=== PATIENT | male | born 1980 | race Caucasian/White ===

== ENCOUNTER 2017-11-16 08:56 | Emergency (ER) | payer MEDICAID ==
[~2017-11-16] VITALS: Ht 185.4 cm; Wt 112.0 kg
[2017-11-16] MEDS ORDERED: FAMOTIDINE 20 MG TABLET ONE (09:50)
[2017-11-16] MEDS ORDERED: MAALOX/HYOSCYAMINE/LIDOCAINE 45 ML BTL ONE (09:51)
[2017-11-16 09:59] LABS: HEMATOCRIT 52.1 % (39.2-51.8); HEMOGLOBIN 18.3 g/dL (13.7-18.0); WHITE BLOOD COUNT 7.4 x10^3/uL (3.4-10)
[2017-11-16] MEDS ORDERED: MAALOX/HYOSCYAMINE/LIDOCAINE 45 ML BTL PO ONE (10:00)
[2017-11-16] MEDS ORDERED: FAMOTIDINE 20 MG TABLET PO SCH (10:00)
[2017-11-16 10:09] LABS: ASPARTATE AMINO TRANSFERASE 50 U/L (15-37); BLOOD UREA NITROGEN 18 mg/dL (7-18)
[2017-11-16 12:05] VITALS: BP 136/82
== END 2017-11-16 12:09 | disposition home or self-care (01) ==
LOC: ED 12:03
DX: K21.0 Gastro-esophageal reflux disease with esophagitis (principal); E11.9 Type 2 diabetes mellitus without complications
CPT/HCPCS: 36415; 80053; 83690; 85025; 86677; 93005; 99285

== ENCOUNTER 2019-02-04 11:09 | Emergency (ER) | payer MEDICAID ==
[~2019-02-04] VITALS: Ht 185.4 cm; Wt 122.5 kg
[2019-02-04 11:10] VITALS: BP 149/94
[2019-02-04] MEDS ORDERED: DEXAMETHASONE 4 MG/ML, 1ML ONE (11:43)
[2019-02-04] MEDS ORDERED: DEXAMETHASONE 4 MG/ML, 1ML PO ONE (12:00)
== END 2019-02-04 11:50 | disposition home or self-care (01) ==
LOC: ED 11:30
DX: J01.00 Acute maxillary sinusitis, unspecified (principal); K12.2 Cellulitis and abscess of mouth; K21.9 Gastro-esophageal reflux disease without esophagitis; E11.9 Type 2 diabetes mellitus without complications
CPT/HCPCS: 99283; J1100